=== PATIENT | male | born 1970 | race American Indian/Alaskan Native ===

== ENCOUNTER 2019-02-21 17:09 | Emergency (ER) | payer SELFPAY ==
[2019-02-21] MEDS ORDERED: ADRENALIN ONE (17:14)
--- NOTE | 2019-02-21 17:27 | Emergency Department Report ---
ED CPR HPI - General Stated Complaint: CARDIAC ARREST Time Seen by Provider: 02/21/19 17:09 Source: EMS Mode of arrival: Stretcher Limitations: Altered Mental Status, Physical Limitation - History of Present Illness Initial Comments: Patient is a 48-year-old male the patient's emergency room with cardiac arrest. Report received from EMS. EMS states that the family stated that he has been having chest pain since this morning but has not been evaluated for it. Report received from EMS: EMS states the patient was shocked twice by an AED by the first responders. And that the patient was found to be unresponsive and pulseless and without respirations. Patient was intubated and CPR was started by EMS. Patient also received 4 more shocks in route as well as epi, amiodaro ne, lidocaine. No ROSC in field. 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 Shock Advised: Yes Number of Shocks Delivered: 2 Initial Findings in the Field: unresponsive, no respirations, no pulse, VTACH/VFIB ROSC in the Field: No Associated Injuries: No Associated Symptoms: chest pain Treatments Prior to Arrival: intubation, BMV, chest compressions, defribrillated shocks #, epinephrine mgs #, sodium bicarbonate, amiodarone ED Review of Systems ROS: Stated complaint: CARDIAC ARREST Other details as noted in HPI Comment: Unobtainable due to pts medical conditions ED Past Medical Hx - Past Medical History Previous Medical History?: Yes Hx Hypertension: Yes Hx Heart Attack/AMI: Yes - Surgical History Past Surgical History?: No - Family History Family history: no significant - Social History Smoking Status: Current Every Day Smoker Substance Use Type: None ED Physical Exam - General Limitations: Altered Mental Status, Physical Limitation General appearance: obese, other (unresponsive) - Head Head exam: Present: atraumatic, normocephalic - Eye Eye exam: Present: other (pupils fixed and dilated) - ENT ENT exam: Present: other (patient intubated) - Neck Neck exam: Present: normal inspection - Respiratory Respiratory exam: Present: other (patient intubated and placement verified by bilateral equal breath sounds) - Cardiovascular Cardiovascular Exam: Present: other (no pulse and asystole on the monitor) - GI/Abdominal GI/Abdominal exam: Present: soft - Rectal Rectal exam: Present: deferred - Extremities Exam Extremities exam: Present: normal inspection - Skin Skin exam: Present: warm, dry ED Course - Reevaluation(s) Reevaluation #1: Patient is a 48-year-old male came in full arrest via EMS. Report received from EMS. EMS states they have shocked him 4 times, given him 2 doses of amiodarone, lidocaine for V. fib. EMS states they also have given him multiple rounds of CPR and epinephrine. Patient was intubated by EMS. Tube placement verified. Care assumed and CPR started immediately. Patient placed on monitor. Patient is asystole with no pulse. Patient will be given medications. See code note. 02/21/19 17:07 Reevaluation #2: Resuscitation efforts terminated due to no signs of life. No respiratory or cardiac motion noted. No pulse. Asystole on the monitor. See code note 02/21/19 17:14 Reevaluation #3: Family meeting done. Support given to sisters and family members of the patient. 02/21/19 17:25 ED Medical Decision Making - Medical Decision Making Patient is a 48-year-old male that presents emergency room in full cardiac arrest. Multiple regimens done prior to arrival by EMS. Patient asystole and pulseless on the moderately entire time in the ER. Resuscitation efforts terminated due to no signs of life. Family support given. - Differential Diagnosis cardiac arrest Critical Care Time: Yes Critical care attestation.: If time is entered above; I have spent that time in minutes in the direct care of this critically ill patient, excluding procedure time. Critical Care Time: 35 minutes ED Disposition Clinical Impression: Cardiac arrest Disposition: DC-20 Is pt being admited?: No Does the pt Need Aspirin: No Condition: Undetermined Time of Disposition: 18:00
== END 2019-02-21 20:30 ==
LOC: ED 17:09
DX: I46.9 Cardiac arrest, cause unspecified (principal); I10 Essential (primary) hypertension; I25.2 Old myocardial infarction; F17.200 Nicotine dependence, unspecified, uncomplicated
CPT/HCPCS: J0171